=== PATIENT | male | born 1990 | race Two or more races ===

== ENCOUNTER 2019-04-04 13:53 | Emergency (ER) | payer MEDICAID ==
[~2019-04-04] VITALS: Ht 175.3 cm; Wt 79.0 kg
[2019-04-04 14:03] VITALS: BP 130/82
[2019-04-04] MEDS ORDERED: LIDOCAINE HCL/EPINEPHRINE 1%-EPI 1:100,000 20 ML VIAL INFIL ONE (18:00)
== END 2019-04-04 19:29 | disposition home or self-care (01) ==
LOC: ER 13:53
DX: K64.5 Perianal venous thrombosis (principal); F17.200 Nicotine dependence, unspecified, uncomplicated
CPT/HCPCS: 46083; 99284; J3490; Z7610